=== PATIENT | female | born 1945 | race Caucasian/White ===

== ENCOUNTER 2016-09-20 09:42 | Observation (INO) ==
[2016-09-20] MEDS ORDERED: Famotidine 20 MG/2 ML VIAL IVP ONE (10:20)
[2016-09-20] MEDS ORDERED: *HR* Morphine 2 MG/ML SYRINGE IVP PRN (10:58)
[2016-09-20] MEDS ORDERED: Naloxone 0.4 MG/ML INJ IVP PRN (10:58)
--- NOTE | 2016-09-20 10:59 | Emergency Department Note ---
Disposition Clinical Impression: Chest pain Qualifiers: Chest pain type: unspecified Qualified Code(s): R07.9 - Chest pain, unspecified Hypertension Qualifiers: Hypertension type: essential hypertension Qualified Code(s): I10 - Essential ( primary) hypertension Disposition: Admitted As Inpatient Time of Disposition: 11:28 Chest Pain HPI - General Chief Complaint: ED Chest Pain Stated Complaint: chest pain Time Seen by Provider: 09/20/16 09:50 Source: EMS Limitations: no limitations Vital Signs Reviewed: Yes Nursing Notes Reviewed: Yes - History of Present Illness HPI Narrative: 71-year-old female presents because of recurrent chest pain. She has had recurrent chest heaviness for the past month. She initially was treated with Nexium with some transient improvement but now symptoms have been recurrent for the last several days. She was seen today by her PCP and sent to the ED for evaluation. She describes as a substernal tightness with radiation to her left scapula. No specific provocative factors. Pt complaint: chest pain Duration: intermittent Pain Location: substernal Severity: moderate Severity scale (1-10): 6 Quality: heaviness Pain Radiation: back Improves with: other (one ntg per EMS) Worsens with: nothing Associated symptoms: Denies: nausea, vomiting, diaphoresis, dyspnea Treatments prior to arrival chest pain: none - Related Data Home Medications Medication Instructions Recorded Confirmed Calcium Carbonate [Calcium] 600 mg PO DAILY 03/22/16 09/20/16 Celecoxib [Celebrex] 100 mg PO DAILY 03/22/16 09/20/16 Ergocalciferol (VITAMIN D2) 400 unit PO DAILY 03/22/16 09/20/16 [Vitamin D] Nebivolol HCl [Bystolic] 10 mg PO DAILY 03/22/16 09/20/16 Oxybutynin [Ditropan] 5 mg PO BID 03/22/16 09/20/16 Esomeprazole Magnesium [Nexium] 40 mg PO DAILY 09/20/16 09/20/16 Allergies Allergy/AdvReac Type Severity Reaction Status Date / Time Estrogens Allergy See Verified 09/20/16 11:25 Comments Penicillins Allergy Hives Verified 09/20/16 11:25 Sulfa (Sulfonamide Allergy Hives Verified 09/20/16 11:25 Antibiotics) All systems ED: reviewed and negative except as stated. Constitutional: Reports: other (generalized fatigue ) Cardiovascular: Reports: chest pain. Denies: palpitations, dyspnea on exertion , orthopnea Respiratory: Denies: cough, dyspnea, wheezes Gastrointestinal: Denies: nausea, vomiting Genitourinary: Denies: urgency, dysuria Chest Pain PMH - Past Medical History Medical history: Reports: arthritis, cancer, DVT, GERD, glaucoma, hypertension, other (Had cardiac catherization in 2000 with no critical CAD identified. ) Surgical history: Reports: hysterectomy, orthopedic, other Psychiatric history: Reports: no psych history - Social History Smoking Status: Never smoker Alcohol use: Reports: none Drug use: Reports: none Physical Exam - General Limitations: no limitations General appearance: alert - Head Head exam: atraumatic, normocephalic - Eye Eye exam: Present: normal appearance - ENT ENT exam: normal exam, normal oropharynx - Neck Neck exam: Present: normal inspection - Chest Chest inspection: Present: normal inspection, symmetric chest wall rise - Respiratory Respiratory exam: Present: normal lung sounds bilaterally - Cardiovascular Cardiovascular exam: Present: regular rate, normal rhythm - Abdominal Exam Abdominal exam: Present: soft, Non-Tender - Expanded Lower Extremity Exam Lower leg exam: Absent: tenderness, swelling - Back Exam Back exam: Present: normal inspection. Absent: CVA tenderness (R), CVA tenderness (L) - Neurological Exam Neurological exam: Present: alert, oriented X3 - Psychiatric Psychiatric exam: Present: normal affect, normal mood - Skin Skin exam: Present: warm Course - Reevaluation(s) Reevaluation #1: Pt seen in the ED by Dr. Arndt and he will admit Time: 11:06 Vital Signs Temperature 97.4 F L 09/20/16 09:46 Pulse Rate 57 09/20/16 09:46 Respiratory Rate 18 09/20/16 09:46 Blood Pressure 206/95 09/20/16 09:46 O2 Sat by Pulse Oximetry 97 09/20/16 09:46 Temperature 97.4 F L 09/20/16 12:12 Pulse Rate 58 09/20/16 12:12 Respiratory Rate 15 09/20/16 12:12 Blood Pressure 166/78 09/20/16 12:12 O2 Sat by Pulse Oximetry 96 09/20/16 12:12 Oxygen Delivery Oxygen Delivery Room Air Chest Pain - Lab Data Result diagrams: 09/20/16 10:25 09/20/16 10:25 Lab Results 09/20/16 09/20/16 09/20/16 Range/Units 10:25 10:25 10:25 WBC 8.1 (4.3-11.1) K/mcL RBC 4.38 (3.82-4.97) M/mcL Hgb 12.7 (11.5-15.4) g/dL Hct 38.7 (35.3-44.9) % MCV 88.4 (83.0-100.0) fL MCH 29.0 (28.0-33.3) pg MCHC 32.8 (31.6-35.5) g/dL RDW 12.1 (11.5-14.5) % Plt Count 218 (140-400) K/mcL MPV 11.0 (9.4-12.4) fL Immature Gran % 0.7 (0-4) % Seg Neutrophils % 59.0 % Lymphocytes % 26.6 % Monocytes % 10.9 % Eosinophils % 2.2 % Basophils % 0.6 % Neutrophils # 4.8 (1.6-8.9) K/mcL Lymphocytes # 2.1 (0.6-4.6) K/mcL Monocytes # 0.9 (0.0-1.3) K/mcL Eosinophils # 0.2 (0.0-0.6) K/mcL Basophils # 0.1 (0.0-0.2) K/mcL Sodium 139 (136-145) mEq/L Potassium 4.1 (3.5-4.5) mEq/L Chloride 106 (98-109) mEq/L Carbon Dioxide 23 (19-29) mEq/L BUN 29 H (7-20) mg/dL Creatinine 0.91 (0.57-1.11) mg/dL Est GFR ( Amer) > 60 (> 60) Est GFR (Non-Af Amer) > 60 (> 60) BUN/Creatinine Ratio 32 H (6-26) Glucose 89 (70-99) mg/dL Calculated Osmolality 293 (280-300) Calcium 9.0 (8.6-10.8) mg/dL Total Bilirubin 0.6 (0.2-1.2) mg/dL Direct Bilirubin 0.2 (0.0-0.5) mg/dL Indirect Bilirubin 0.4 (0.0-1.2) mg/dL AST 20 (5-34) Units/L ALT 26 (0-55) Units/L Alkaline Phosphatase 81 (38-126) Units/L Troponin I 0.01 (0-0.03) ng/mL Serum Total Protein 7.2 (6.0-8.3) g/dL Albumin 3.8 (3.5-5.0) g/dL Globulin 3.4 (2.4-3.5) g/dL Albumin/Globulin Ratio 1.1 (1.1-2.2) Lipase 62 (8-78) Units/L - EKG Data EKG attestation: Yes I reviewed and interpreted this EKG. EKG results narrative: Sinus bradycardia with rate of 48. Left bundle branch block is present similar to morphology tracing done 03/25/2014 no change in morphology pattern or repolarization. EKG shows normal: sinus rhythm Rate: bradycardia Jena/QRS: LBBB
[2016-09-20] MEDS ORDERED: Nitroglycerin 0.4 MG TAB.SUBL SL PRN (11:08)
--- NOTE | 2016-09-20 11:13 | Internal Med History&Physical ---
Date of Encounter: 09/20/16 Time of Encounter: 11:09 Assessment and Plan (1) Chest pain Status: Acute Chest pain: Admitted as observation. - cardiac diet. -ASA/BB/Statin - Echocardiogram -Pain control with morphine -We will resume home medication -If echocardiogram is normal then please consider stress test -If echocardiogram is abnormal and his consider cardiology evaluation -Family at bedside. Above plan discussed with the family. -Family verbalize understanding. Family agreed with the above plan. Qualifiers: Chest pain type: precordial pain Qualified Code(s): R07.2 - Precordial pain (2) Hypertension Status: Chronic Presently blood pressure is usually well controlled. We will resume the home medications. Qualifiers: Hypertension type: essential hypertension Qualified Code(s): I10 - Essential (primary) hypertension (3) DVT prophylaxis Status: Acute Heparin Medical decision making : this patient has a mild to moderate discomfort worsening cardiac issue in spite of being on appropriate medication Internal Medicine - H&P: HPI Chief complaint: chest pain Admitted From: Emergency Dept Plans for Post Hospital Care: Home History of present illness: PCP : [facility] : Dr Burton. Brief PMH: HTN, Hyperlipidemia, Hx of DVT ( 1971, 1979), cardiac cath in 01/2011 ( no stents as per patient), CAD HPI: Patient has ongoing chest discomfort and abdominal discomfort for more than 2 months. She was seen by her primary care. She was given medication for acid reflux. She was diagnosed as GERD. Patient did not respond to acid reflux medication. Last one week patient has a worsening chest pain. The chest pain is precordial in nature. The chest pain radiates to left shoulder. Occasionally chest pain radiates to the right shoulder blade too. The characteristics. Pain is a sharp in nature. Patient denies any cough, shortness of breath, dizziness, abdominal pain, diarrhea. Today patient went to see her PCP. At PCPs office patient was complaining of chest pain. At his recent PCP sent her to the emergency room. Emergency room workup: This patient was worked up in the emergency room.Investigations done. Reason for admission: Chest pain rule out ACS. Family history noncontributory Past Med Surg Social Fam HX - Past Medical History Medical history: arthritis, cancer, DVT, GERD, glaucoma, hypertension, other ( Had cardiac catherization in 2000 with no critical CAD identified. ) Psychiatric history: no psych history - Past Surgical History Surgical History: hysterectomy, orthopedic, other - Social History Smoking Status: Never smoker Smokeless Tobacco Status: No Alcohol use: none Drug use: none Internal Medicine - H&P: Meds Calcium Carbonate [Calcium] 600 mg PO DAILY 03/22/16 [History] Celecoxib [Celebrex] 100 mg PO DAILY 03/22/16 [History] Ergocalciferol (VITAMIN D2) [Vitamin D] 400 unit PO DAILY 03/22/16 [History] Nebivolol HCl [Bystolic] 10 mg PO DAILY 03/22/16 [History] Oxybutynin [Ditropan] 5 mg PO BID 03/22/16 [History] Esomeprazole Magnesium [Nexium] 40 mg PO DAILY 09/20/16 [History] Atorvastatin [Lipitor] 20 mg PO HS #30 tablet 09/21/16 [Rx] Nitroglycerin 0.4 mg SL Q5MIN PRN #30 tab.subl 09/21/16 [Rx] Allergies Estrogens Allergy (Verified 09/20/16 11:25) See Comments Clotting Issues per patient Penicillins Allergy (Verified 09/20/16 11:25) Hives Sulfa (Sulfonamide Antibiotics) Allergy (Verified 09/20/16 11:25) Hives All Systems PM: A 10-system review of systems was performed and is negative for pertinent findings except as documented above in the HPI. - Constitutional Constitutional: no chills, no fever(s), no night sweats - EENT Eyes: no change in vision, no discharge, no pain, no photophobia Ears: no ear discharge, no ear pain, no tinnitus Nose, mouth and throat: no dysphagia, no nasal discharge, no neck pain, no sore throat - Cardiovascular Cardiovascular ROS IM: chest pain, diaphoresis, dyspnea, no lightheadedness, no palpitations, no syncope - Respiratory Respiratory: no cough, no dyspnea, no wheezing, no excessive phlegm production - Gastrointestinal Gastrointestinal: no abdominal pain, no diarrhea, no hematemesis, no hematochezia, no melena, no nausea, no vomiting - Genitourinary Genitourinary: no change in urinary stream, no dysuria, no flank pain, no hematuria - Musculoskeletal Musculoskeletal ROS IM: no numbness, no tingling - Integumentary Integumentary IM: no rash, no unusual bruising - Neurological Neurological ROS: no confusion, no convulsions, no focal weakness, no numbness, no tingling, no tremor(s) - Hematologic/Lymphatic Hematologic/Lymphatic: no easy bruising - Constitutional Vitals: Temp Pulse Resp BP Pulse Ox 97.4 F L 57 18 206/95 97 09/20/16 09:46 09/20/16 09:46 09/20/16 09:46 09/20/16 09:46 09/20/16 09:54 General appearance: Present: A&O X 3, pleasant, no acute distress, obese, answers questions appropriately - Head Head exam: Present: atraumatic, normocephalic - Eye Eye exam: Present: PERRL, conjuntiva pink, sclera anicteric Pupils: Present: PERRL - Neck Neck exam general surgery: Present: supple, trachea midline. Absent: lymphadenopathy - Respiratory Respiratory exam: Present: CTAB. Absent: accessory muscle use, rales, rhonchi, wheezes - Cardiovascular Cardiovascular exam: Present: RRR, +S1, +S2. Absent: diastolic murmur, gallop, rubs, systolic murmur - GI/Abdominal GI/Abdominal exam: Present: normal bowel sounds, soft, no peritoneal signs. Absent: distended, tenderness - Extremities Exam Extremities exam: Present: warm, radial pulses palpable and symetrical. Absent : calf tenderness, cyanotic, pedal edema - Neurological Exam Neurological exam: Present: CN II-XII intact, oriented X3, no focal deficits. Absent: pronater drift, facial droop, speech deficit - Skin Skin exam: Present: dry, intact Internal Med - H&P Results - Labs CBC & Chem 7: 09/21/16 03:15 09/21/16 03:15 - Impressions ITS Impressions Chest X-Ray 09/20/16 10:09 IMPRESSION: Minimal left basilar atelectasis. Focal opacity seen in the right lung base medially, which may represent a prominent pericardial fat pad. However, differential considerations would include possibly airspace disease or less likely a mass. Given no previous chest imaging within our PACs system, comparison to any previous imaging would be beneficial and an addendum could be added, versus evaluation with a CT scan of the chest given the patient's presentation for an acute abnormality. D/ / Thaddeus Villavicencio MD / Thaddeus Villavicencio MD Interpreting Provider: Thaddeus Villavicencio MD
[2016-09-20 11:18] LABS: Basophils # 0.1 K/mcL (0.0-0.2); Basophils % 0.6 %; Eosinophils # 0.2 K/mcL (0.0-0.6); Eosinophils % 2.2 %; Hematocrit 38.7 % (35.3-44.9); Hemoglobin 12.7 g/dL (11.5-15.4); Immature Granulocytes % 0.7 % (0-4); Lymphocytes # 2.1 K/mcL (0.6-4.6); Lymphocytes % 26.6 %; Mean Corpuscular HGB Conc 32.8 g/dL (31.6-35.5); Mean Corpuscular Volume 88.4 fL (83.0-100.0); Monocytes # 0.9 K/mcL (0.0-1.3); Monocytes % 10.9 %; Neutrophils # 4.8 K/mcL (1.6-8.9); Platelet Count 218 K/mcL (140-400); Red Blood Count 4.38 M/mcL (3.82-4.97); Red Cell Distribution Width 12.1 % (11.5-14.5)
[2016-09-20 11:30] LABS: BUN/Creatinine Ratio 32 (6-26); Blood Urea Nitrogen 29 mg/dL (7-20); Carbon Dioxide 23 mEq/L (19-29); Chloride 106 mEq/L (98-109); Glucose 89 mg/dL (70-99); Osmolality,Calculated 293 (280-300); Potassium 4.1 mEq/L (3.5-4.5); Sodium 139 mEq/L (136-145); eGFR For African Americans > 60 (> 60); eGFR For Non-African Americans > 60 (> 60)
[2016-09-20 11:57] LABS: Alanine Aminotransferase 26 Units/L (0-55); Albumin 3.8 g/dL (3.5-5.0); Albumin/Globulin Ratio 1.1 (1.1-2.2); Alkaline Phosphatase 81 Units/L (38-126); Aspartate Amino Transferase 20 Units/L (5-34); Bilirubin,Direct 0.2 mg/dL (0.0-0.5); Bilirubin,Indirect 0.4 mg/dL (0.0-1.2); Bilirubin,Total 0.6 mg/dL (0.2-1.2); Globulin 3.4 g/dL (2.4-3.5); Lipase 62 Units/L (8-78); Total Protein 7.2 g/dL (6.0-8.3)
[2016-09-20 12:26] LABS: Bilirubin,Urine Negative (Negative); Blood,Urine Negative (Negative); Clarity,Urine Clear (Clear); Color,Urine Yellow (Yellow); Glucose,Urine (UA) Normal (Normal); Ketones,Urine Negative (Negative); Leukocyte Esterase,Urine Negative (Negative); Nitrite,Urine Negative (Negative); PH,Urine 6.5 pH Units (5.0-8.0); Protein,Urine Negative (Neg-Trace); Specific Gravity,Urine 1.007 (1.010-1.025); Urobilinogen,Urine Normal (Normal)
[2016-09-20] MEDS: Aspirin Enteric Coated 81 MG Tablet PO SCH (13:22)
--- NOTE | 2016-09-20 16:19 | Electrocardiograph Report ---
[place] [id number] Test Date: 2016-09-20 Pat Name: Tessa Lloyd Department: 103 Room: 3B Gender: F Hammerer Helper: : 1945 Requested By: Chey Torres Order Number: [id number] Reading MD: Arabella Sarkar Measurements Intervals [place] Rate: 48 P: 45 AL: 174 QRS: -23 QRSD: 140 T: 25 QT: 464 QTc: 431 Interpretive Statements SINUS BRADYCARDIA LEFT BUNDLE BRANCH BLOCK Electronically Signed On 09-20-2016 16:17:42 EST by Arabella Sarkar
[2016-09-20] MEDS: *HR* Heparin 5,000 UNIT/ML VIAL SQ SCH (17:17)
[2016-09-21 03:56] LABS: Basophils % 0.6 %; Eosinophils # 0.2 K/mcL (0.0-0.6); Eosinophils % 3.1 %; Hematocrit 37.1 % (35.3-44.9); Hemoglobin 12.3 g/dL (11.5-15.4); Immature Granulocytes % 0.8 % (0-4); Lymphocytes # 2.2 K/mcL (0.6-4.6); Lymphocytes % 35.6 %; Mean Corpuscular HGB Conc 33.2 g/dL (31.6-35.5); Mean Corpuscular Volume 87.5 fL (83.0-100.0); Mean Platelet Volume 10.8 fL (9.4-12.4); Monocytes # 0.7 K/mcL (0.0-1.3); Monocytes % 10.6 %; Neutrophils # 3.1 K/mcL (1.6-8.9); Platelet Count 201 K/mcL (140-400); Red Blood Count 4.24 M/mcL (3.82-4.97); Red Cell Distribution Width 12.2 % (11.5-14.5); Segmented Neutrophils % 49.3 %
[2016-09-21 04:18] LABS: Alanine Aminotransferase 26 Units/L (0-55); Albumin 3.4 g/dL (3.5-5.0); Alkaline Phosphatase 81 Units/L (38-126); Aspartate Amino Transferase 22 Units/L (5-34); BUN/Creatinine Ratio 34 (6-26); Bilirubin,Total 0.5 mg/dL (0.2-1.2); Blood Urea Nitrogen 29 mg/dL (7-20); Calcium 8.7 mg/dL (8.6-10.8); Carbon Dioxide 22 mEq/L (19-29); Chloride 109 mEq/L (98-109); Chol/HDL Ratio 5.8 (0-4.9); Cholesterol 203 mg/dL (< 200); Globulin 3.3 g/dL (2.4-3.5); Glucose 91 mg/dL (70-99); HDL Cholesterol 35 mg/dL (40-59); LDL Cholesterol,Calculated 139 mg/dL (0-99); Osmolality,Calculated 295 (280-300); Phosphorous 3.7 mg/dL (2.3-4.7); Potassium 4.3 mEq/L (3.5-4.5); Sodium 140 mEq/L (136-145); Total Protein 6.7 g/dL (6.0-8.3); Triglycerides 145 mg/dL (< 150); eGFR For African Americans > 60 (> 60); eGFR For Non-African Americans > 60 (> 60)
[2016-09-21] MEDS: *HR* Heparin 5,000 UNIT/ML VIAL SQ SCH (06:19)
--- NOTE | 2016-09-21 08:04 | ECHO - Doppler Report ---
Echocardiogram Name: Tessa Lloyd Date of Study: 09/20/2016 Date: 1945 Ht: 67.0 in Medical Record#: [id number] Age: 71 Wt: 195.0 lb Gender: Female BSA: 2 Order #: [id number] Location: [facility] Room #: 3B36 Reading Physician: Rm Ramírez MD, [facility] Still Runner: Marion Alonso Ordering Physician: Eber Arndt MD Primary Physician: L[facility] CNP Indications: Chest pain Impressions: Mild concentric left ventricular hypertrophy. Mildly dilated left atrium. No pulmonary hypertension. LVEF 60-65%. Mild left ventricular diastolic dysfunction. No significant valvular dysfunction. Left Ventricular Wall Motion: Rest Echo Findings All wall segments showed normal motion. Findings: Study Quality * Technically adequate exam. Right Ventricle * Normal right ventricular structure and function. Right Atrium * Normal right atrial size. Aortic Valve * Trileaflet aortic valve with normal function. Interatrial Septum * No evidence of PFO by color Doppler. Aorta * Normally sized aortic root. Pericardium * The pericardium appears normal. Left Atrium * Mildly dilated left atrium. Tricuspid Valve * No tricuspid stenosis. * Trace tricuspid regurgitation. * No evidence of pulmonary hypertension. * Estimated RVSP is 29 mmHg. * Estimated RA pressure is 3-5 mmHg. * No pulmonary hypertension. Left Ventricle * LVEF 60-65%. * Mild left ventricular diastolic dysfunction. * Mild concentric left ventricular hypertrophy. Pulmonic Valve * No pulmonic stenosis. * Trace pulmonic regurgitation. Mitral Valve * Normal mitral valve structure. * No mitral stenosis. * Trace mitral regurgitation. IVC * Normal IVC dimensions and inspiratory collapse. ECG Findings * Normal sinus rhythm. History Hypertension Hypercholesteremia Family History of CAD History of CAD/PTCA 04/04/2011 a Previous Echo was performed. Measurements: BP: 164/ 82 2D Normal Values RVIDd: 2.80 cm <2.7 cm IVSd: 1.60 cm 0.6 - 1.0 cm LVIDd: 4.10 cm 3.7 - 5.6 cm LVPWd: 1.20 cm 0.6 - 1.1 cm LVIDs: 2.45 cm 1.5 - 3.6 cm AO: 2.40 cm < 4.0 cm LA: 3.80 cm 2.0 - 4.0cm %FS: 39.00 cm >25 % LA volume: 69 Mitral Valve Peak E:.75 m/sec Peak A:.92 m/sec E/A Ratio:0.8 Peak E' Lat Rubén:5.36 cm/s Peak E' Med Rubén:4.48 cm/s E/E' Lat Ratio:14 E/E' Med Ratio:16.7 Tricuspid Valve TV Regurg Peak Grad: 29.00mmHg TV Regurg Peak Rubén: 2.69m/sec Updated by Juanito Mcmahan DO, FACCaprice, LETICIA, FASLISA on 09/21/2016 7:58:07 AM electronically signed on 09/21/2016 7:59:32 AM with status of Final Wall Motion Diaz: 1=Normal, 2=Hypokinesis, 3=Akinesis, 4=Dyskinesis, 5=Aneurysmal, 6=Hyperkinetic, X=Not Visualized (Blank)=Missing
[2016-09-21] MEDS ORDERED: Regadenoson 0.4 MG/5 ML SYRINGE IVP ONE (10:38)
[2016-09-21] MEDS: Aspirin Enteric Coated 81 MG Tablet PO SCH (14:19)
[2016-09-21 15:56] VITALS: BP 154/55
--- NOTE | 2016-09-21 16:07 | Discharge Summary ---
Date of Encounter: 09/21/16 Time of Encounter: 14:45 - Discharge Diagnosis (1) Chest pain Priority: Primary Status: Acute Qualifiers: Chest pain type: precordial pain Qualified Code(s): R07.2 - Precordial pain (2) Hyperlipidemia Priority: Secondary Status: Chronic Qualifiers: Hyperlipidemia type: mixed hyperlipidemia Qualified Code(s): E78.2 - Mixed hyperlipidemia (3) Hypertension Priority: Secondary Status: Chronic Qualifiers: Hypertension type: essential hypertension Qualified Code(s): I10 - Essential (primary) hypertension - Discharge Medications Prescriptions: Nitroglycerin 0.4 mg SL Q5MIN PRN #30 tab.subl PRN Reason: Chest Pain Atorvastatin [Lipitor] 20 mg PO HS #30 tablet Home Medications: Calcium Carbonate [Calcium] 600 mg PO DAILY 03/22/16 [History] Celecoxib [Celebrex] 100 mg PO DAILY 03/22/16 [History] Ergocalciferol (VITAMIN D2) [Vitamin D] 400 unit PO DAILY 03/22/16 [History] Nebivolol HCl [Bystolic] 10 mg PO DAILY 03/22/16 [History] Oxybutynin [Ditropan] 5 mg PO BID 03/22/16 [History] Esomeprazole Magnesium [Nexium] 40 mg PO DAILY 09/20/16 [History] Atorvastatin [Lipitor] 20 mg PO HS #30 tablet 09/21/16 [Rx] Nitroglycerin 0.4 mg SL Q5MIN PRN #30 tab.subl 09/21/16 [Rx] Allergies/Adverse Reactions: Allergies Estrogens Allergy (Verified 09/20/16 11:25) See Comments Clotting Issues per patient Penicillins Allergy (Verified 09/20/16 11:25) Hives Sulfa (Sulfonamide Antibiotics) Allergy (Verified 09/20/16 11:25) Hives Procedures/tests Complete & Pending: Procedures Performed prior 72 hours Category Date Time Status NM jordin perf SPECT multi [NM] Routine Exams 09/21/16 10:12 Taken ECG 12 lead ECG [ECG] Routine Y 09/20/16 11:20 Completed SP pharm nuclear stress Routine Y 09/21/16 10:12 Completed Date of admission: 09/20/16 11:13 Primary care physician: L[facility] [employer]RY CONTR[employer] TENDER Discharging clinician: Gertrude Butt Anticipated date of discharge: 09/21/16 - Patient Status Disposition: Home, Self-Care Condition: Good Functional capacity at discharge: independent ambulation Overall status at discharge: patient is back to baseline - Discharge Instructions Instructions: Nitroglycerin, Rapid Release (By mouth), Atorvastatin (By mouth) , Chest Pain (DC), Chronic Hypertension (DC) Follow Up With: Lani [facility] CNP [Primary Care Provider] - - Diet and Activity Activity: resume usual activities as tolerated Diet: low fat, low cholesterol, low salt diet Hospital course: Ms. Lloyd is a 71 year old female admitted with retrosternal chest pain. Initial labs, EKG and chest XRay done in the ER showed no acute abnormality. Chest XRay did show possible atelectasis of left lung base and possible right middle lobe infiltrate or mass. Patient has no symptoms of respiratory infection and remained asymptomatic since admission. She does report significant improvement in chest pain with Nitroglycerine. Echocardiogram was done which showed 60-65% EF, mild concentric LVH, LAD, left ventricular diastolic dysfunction, no pulmonary HTN. Nuclear stress test was done which showed no e/o- ischemia. Patient is medically stable for discharge at this time with outpatient f/up. - Time Spent with Patient Total time spent providing and/or coordinating discharge services: Greater than 30 minutes (45 min) - Constitutional Vitals: Temp Pulse Resp BP Pulse Ox 97.3 F L 63 15 154/55 97 09/21/16 15:55 09/21/16 15:55 09/21/16 15:55 09/21/16 15:55 09/21/16 15:55 General appearance: Present: A&O X 3, answers questions appropriately - Respiratory Respiratory exam: Present: CTAB. Absent: accessory muscle use, rales, rhonchi, wheezes - Cardiovascular Cardiovascular exam: Present: RRR, +S1, +S2. Absent: diastolic murmur, gallop, rubs, systolic murmur
--- NOTE | 2016-09-21 16:08 | Nuclear Medicine Stress Report ---
Low Level Regadenoson Name: Tessa Lloyd Date of Study: 09/21/2016 Date: 1945 Ht: 67.0 in Medical Record#: [id number] Age: 71 Wt: 195.0 lb Gender: Female Order #: [id number] Location: [facility] Room: [facility] Supervising Provider: Sly Servin CNP Reading Physician: Rm Ramírez MD, [facility] Ordering Physician: Clair Butt MD Primary Care Physician: Lani [facility] CNP Stress Technologist: Shane Zhou, CONSTRUCTION SAF[employer]Y CONSULTANT, [facility] Sanitizer: Roque Ham Indications: Chest Pain Impression: Perfusion imaging was negative for ischemia or infarct. Pharmacologic ECG was non diagnostic for ischemia secondary to LBBB Patient had chest pain before stress test started Normal hemodynamic response. No arrhythmias noted with stress. Gated EF = 69%. The LV is not dilated. There is no evidence of TID. History: Hypertension Hypercholesteremia Stress Test Summary: Stress Test Type: Low level pharmacologic Regadenoson 0.4mg/5ml given IV Baseline Information: Initial Heart Rate: 61 Blood Pressure: 148/88 Stress Information: Stress Time: 4 min 00 sec Test Terminated Due to (primary): As per protocol Maximum Blood Pressure: 148/86 Maximum Heart Rate: 135 Percent Maximum Heart Rate Achieved: 89 Double Product: [id number] METS Reached: 2.1 Symptoms: Shortness of breath, Chest discomfort Nuclear Summary: SPECT myocardial perfusion imaging using Tc99m Sestamibi given intravenously was performed at rest and following cardiac stress testing. The resting images were obtained following initial dose of 11.4 mCi. Following stress an additional dose of 34.4 mCi was given at peak exercise or 30 seconds post regadenoson infusion. Medication Given: Time Medication Dose Units Route Findings: Stress Note * No baseline arrhythmias were noted. * Left Bundle Branch Block. * Exercise ECG is non diagnostic for ischemia due to LBBB. * No arrhythmias were noted during stress. * The exercise capacity was fair. * Patient had shortness of breath during stress. Hemodynamic responses * Normal hemodynamic responses to exercise. Study Quality * Study quality is average. Gated EF % * Gated EF = 69%. NORMALS * Normal wall motion. * Normal segmental perfusion in stress. * Normal Segmental Perfusion in rest. TID * No evidence of transient ischemic dilatation. Left Ventricle * The left ventricle is not dilated. Updated by Rm Ramírez MD, FACC on 09/21/2016 4:00:41 PM electronically signed on 09/21/2016 4:03:55 PM with status of Final
== END 2016-09-21 17:10 | disposition home or self-care (01) ==
LOC: 3BNU 09:42 → EMEROO 09:42 → SUATTDRO 11:13 → 3BNU 12:05
PROVIDERS: ADMIT Internal Medicine; ATTEND Internal Medicine